=== PATIENT | female | born 1980 | race Caucasian/White ===

== ENCOUNTER 2018-09-23 16:41 | Emergency (ER) | payer SELFPAY ==
[~2018-09-23] VITALS: Ht 149.9 cm; Wt 81.6 kg
[2018-09-23 17:00] VITALS: BP_SYST 141
[2018-09-23 18:06] LABS: BILIRUBIN,URINE NEGATIVE (NEGATIVE); BLOOD, URINE 3+ (NEGATIVE); CLARITY/URINE CLOUDY (CLEAR); COLOR,URINE RED (YELLOW); GLUCOSE,URINE NEGATIVE (NEGATIVE); KETONES,URINE NEGATIVE (NEGATIVE); LEUKOCYTE ESTERASE ,URINE TRACE (NEGATIVE); NITRITE, URINE NEGATIVE (NEGATIVE); PH,URINE 5.5 (5.0-8.0); PROTEIN URINE TRACE (NEGATIVE); UROBILINOGEN,URINE 0.2 (0.2-1.0)
[2018-09-23 18:15] LABS: BACTERIA,URINE MODERATE /HPF (None Seen); RBC,URINE >100 /HPF (0-3); WBC,URINE 0-3 /HPF (0-3)
[2018-09-23 18:16] LABS: MUCUS,URINE None Seen /LPF (None Seen)
[2018-09-23 18:19] LABS: BASOPHILS # (AUTO) 0.2 K/uL (0.0-0.2); BASOPHILS % (AUTO) 0.9 % (0.0-2.0); EOSINOPHILS # (AUTO) 0.1 K/uL (0.0-0.4); EOSINOPHILS % (AUTO) 0.9 % (0.0-4.0); HEMATOCRIT 38.2 % (36-48); HEMOGLOBIN 12.9 g/dL (12.0-16.0); LYMPHOCYTES % (AUTO) 17.6 % (20.5-51.5); MEAN CORPUSCULAR HEMOGLOBIN 28 pg (27-31); MEAN CORPUSCULAR HGB CONC 34 % (32-36); MEAN CORPUSCULAR VOLUME 82 fL (79.0-98.0); MONOCYTES # (AUTO) 0.8 K/uL (0.0-1.0); MONOCYTES % (AUTO) 4.5 % (1.7-9.3); NEUTROPHILS # (AUTO) 12.9 K/uL (1.8-7.7); NEUTROPHILS % (AUTO) 76.1 % (40.0-70.0); PLATELET COUNT (AUTO) 309 K/uL (130-430); RED BLOOD CELL COUNT(AUTO) 4.68 MIL/uL (4.2-6.2); RED CELL DISTRIBUTION WIDTH 13.5 % (9.0-15.0); WHITE BLOOD COUNT (AUTO) 16.9 K/uL (4.8-10.8)
[2018-09-23 18:31] LABS: CALCIUM 9.2 mg/dL (8.4-11.0); CREATININE 0.77 mg/dL (0.55-1.30); POTASSIUM 3.7 mmol/L (3.5-5.1)
[2018-09-23 18:59] LABS: ALBUMIN 3.4 g/dL (3.4-4.8); TOTAL BILIRUBIN 0.4 mg/dL (0.0-1.0)
[2018-09-23] MEDS ORDERED: NS 1000 ML IV.SOLN IV ONE (19:00)
[2018-09-23 22:02] VITALS: BP_SYST 124
== END 2018-09-23 22:02 | disposition home or self-care (01) ==
LOC: SED 16:41
DX: O46.91 Antepartum hemorrhage, unspecified, first trimester (principal); Z86.79 Personal history of other diseases of the circulatory system; Z3A.01 Less than 8 weeks gestation of pregnancy
CPT/HCPCS: 36415; 76801; 80053; 81000-TC; 83605; 84702-TC; 85025; 86901; 87040-TC; 87086; 99284

== ENCOUNTER 2023-06-07 10:02 | Day surgery (SDC) | payer OTHER ==
[~2023-06-07] VITALS: Ht 149.9 cm; Wt 72.6 kg
[2023-06-07 11:11] LABS: HCG,QUAL RESULT NEGATIVE (NEGATIVE)
[2023-06-07] MEDS ORDERED: DESFLURANE 15 MIN GAS INH ONE (12:20)
[2023-06-07] MEDS ORDERED: ROCURONIUM BROMIDE 10 MG/ML (ZEMURON) ONE (12:20)
[2023-06-07] MEDS ORDERED: PROPOFOL 200MG/ 20ML VIAL (DIPRIVAN) IV ONE (12:20)
[2023-06-07] MEDS ORDERED: fentaNYL CITRATE/PF 100 MCG/2 ML AMP ONE (12:20)
[2023-06-07] MEDS ORDERED: NS 1000 ML IV.SOLN IV ONE ×2 (12:20)
[2023-06-07] MEDS ORDERED: BUPIVACAINE /EPINEPHRINE/PF 0.5% 30 ML VIAL INJ ONE (12:20)
[2023-06-07] MEDS ORDERED: WATER FOR IRRIGATION,STERILE 1,000 ML IRRIG.SOLN IR ONE (12:20)
[2023-06-07] MEDS ORDERED: MIDAZOLAM HCL/PF 2 MG/2 ML SYRINGE ONE (12:20)
[2023-06-07] MEDS ORDERED: SUGAMMADEX SODIUM 200 MG/2 ML VIAL IV ONE (12:20)
[2023-06-07] MEDS ORDERED: KETOROLAC TROMETHAMINE 30 MG VIAL ONE (12:20)
[2023-06-07] MEDS ORDERED: DEXAMETHASONE SOD PHOSPHATE 4 MG/ML VIAL ONE (12:20)
[2023-06-07] MEDS ORDERED: ONDANSETRON HCL 4 MG/2 ML VIAL ONE (12:20)
[2023-06-07] MEDS ORDERED: LIDOCAINE 2%, 20 ML MDV ONE (12:20)
[2023-06-07] MEDS ORDERED: ACETAMINOPHEN I.V. 1000 MG 100 ML IV ONE (12:53)
[2023-06-07 12:55] VITALS: O2SAT 99
[2023-06-07] MEDS ORDERED: NACL 0.9% 1,000 ML IV SCH (13:15)
[2023-06-07] MEDS ORDERED: MIDAZOLAM HCL 2 MG/2 ML VIAL (VERSED) IVP PRN (13:15)
[2023-06-07] MEDS ORDERED: MEPERIDINE HCL/PF 25 MG/ML DISP.SYRIN IVP PRN (13:15)
[2023-06-07] MEDS ORDERED: HYDROmorphone 1 MG/ML INJ. CARTRIDGE IVP PRN ×2 (13:15)
[2023-06-07] MEDS ORDERED: METOCLOPRAMIDE HCL 10 MG/2 ML VIAL IVP PRN (13:15)
[2023-06-07 17:02] VITALS: BP_SYST 124; PULSE 51; RESP 16; TEMP 97.3
== END 2023-06-07 16:10 | disposition home or self-care (01) ==
LOC: SDS 10:02 → SMU 10:10 → SDS 16:10
PROVIDERS: ATTEND Obstetrics & Gynecology
DX: Z30.2 Encounter for sterilization (principal); E66.9 Obesity, unspecified; Z68.32 Body mass index [BMI] 32.0-32.9, adult
CPT/HCPCS: 58670; 84703; 87081; J3490 ×2; J1100; J1885; J3465; J2405; J2704; J3010; J7030; C1727; J0131; J2001